=== PATIENT | female | born 1990 | race Caucasian/White ===

== ENCOUNTER 2023-10-22 20:08 | Outpatient (CLI) | payer SELFPAY ==
[2023-10-22] VITALS (16 sets, daily range): BP systolic 116–145; BP diastolic 62–83; PULSE 77–115; RESP 17; TEMP 36.1; BMI 33.7
[2023-10-22 20:41] LABS: Actim Prom Positive
[2023-10-22 20:57] LABS: Protein Urine Trace (Negative); Specific Gravity, Urine 1.015 (1.005-1.030); Urine Appearance SL Hazy (CLEAR); Urine Color Light yellow (Yellow); pH Urine 6 (5-7)
[2023-10-22 20:58] LABS: Bilirubin Urine Neg (Negative); Blood Urine 3+ (Negative); Glucose Urine UA Norm (Normal); Ketones Urine Negative (Negative); Leukocyte Esterase Urine Negative (Negative); Nitrate Urine Negative (Negative); Urobilinogen Urine Norm (Negative)
[2023-10-22 21:02] LABS: Bacteria Urine TRACE /hpf; RBC Urine 25-40 /hpf (0-2); Squamous Epithelial Cell Urine 0-4 /hpf (0-5); WBC Urine 0-4 /hpf (0-5)
[2023-10-22 21:03] LABS: Add Urine Culture? Yes
--- NOTE | 2023-10-22 22:46 | P.TNLD_ITS ---
OB L&D Triage Visit Information: Date of evaluation: 10/22/23 Reason for evaluation: other (Spontaneous rupture membranes at 33 weeks gestation (twins)) Evaluation: Baseline heart rate: 130 Variability: Moderate (11-25) monitor accelerations: Present 15x15 monitor decelerations: None Cervical dilation (cm): 1 Cervical effacement (%): 80 station: -2 Laboratory results: Laboratory Tests 10/22/23 10/22/23 20:32 20:35 Insulin-like GF I Positive Urine Color Light yellow Urine Appearance Sl hazy A Urine pH 6 Ur Specific Gravit y 1.015 Urine Protein Trace Urine Glucose (UA) Norm Urine Ketones Negative Urine Blood 3+ H Urine Nitrate Negative Urine Bilirubin Neg Urine Urobilinogen Norm Ur Leukocyte Ivette ase Negative Urine RBC 25-40 H Urine WBC 0-4 H Ur Squamous Epith Cells 0-4 H Amorphous Sediment Not Reportable Urine Bacteria Trace Vital signs: Vital Signs - 24 hr 10/22/23 20:13 10/22/23 20:14 10/22/23 20:20 Temperature 97.0 F L Pulse Rate 115 H Respiratory Rate 17 Blood Pressure 145/80 Oxygen Delivery Me thod 10/22/23 20:20 10/22/23 20:29 10/22/23 20:44 Temperature Pulse Rate 96 95 Respiratory Rate 17 Blood Pressure 131/83 121/72 Oxygen Delivery Me thod Room Air 10/22/23 20:59 10/22/23 21:14 10/22/23 21:29 Temperature Pulse Rate 87 88 106 H Respiratory Rate Blood Pressure 116/69 127/68 126/76 Oxygen Delivery Me thod 10/22/23 21:44 10/22/23 21:59 10/22/23 22:14 Temperature Pulse Rate 99 105 H 96 Respiratory Rate Blood Pressure 125/74 131/74 131/77 Oxygen Delivery Me thod 10/22/23 22:29 Temperature Pulse Rate 91 Respiratory Rate Blood Pressure 129/70 Oxygen Delivery Me thod Care Comments: See record Additional Care Information: 33-year-old G3, P1 Ab1 at 33.1 weeks gestation LMP 03/02/23, EDC 12/09/23 with diamniotic monochorionic twin gestation. Patient presented to labor and delivery with complaints of contractions onset 4 PM and gush of fluid at 7 PM. Patient admits to good movement. Patient has been seeing a CPM Lindsay Calderón this , and refused to be transferred to high risk care. records reviewed. Today after evaluation patient refuses antibiotics, magnesium sulfate, Procardia and IV fluid. She would only except IM betamethasone for lung maturation assistance. Prolonged and in depth counseling regarding twin gestation and delivery risk was done but patient declines. GBS cultures performed. Transfer to high risk facility has been advised, after patient questions name of accepting physician she accepts transfer. Bedside ultrasound?baby A vertex, baby B transverse. Final Diagnosis Final Diagnosis (1) Twin gestation in third trimester: Status: Acute Code(s): O30.003 - Twin , unspecified number of placenta and unspecified number of amniotic sacs, third trimester (2) Spontaneous rupture of membranes: Status: Acute (3) 33 weeks gestation of : Status: Acute Code(s): Z3A.33 - 33 weeks gestation of (4) premature rupture of membranes: Status: Acute Code(s): O42.919 - premature rupture of membranes, unspecified as to length of time between rupture and onset of labor, unspecified trimester (5) uterine contractions in third trimester, antepartum: Status: Acute Code(s): O47.03 - False labor before 37 completed weeks of gestation, third trimester Other Information/Follow up Transfer to high risk [facility] accepting physician Dr. Romeo. Coding Level of Care Code Acute Code for Chg Fwd Diagnoses Twin gestation in third trimester O30.003 Spontaneous rupture of membranes 33 weeks gestation of Z3A.33 premature rupture of membranes O42.919 uterine contractions in third trimester, antepartum O47.03
[2023-10-22] MEDS: betamethasone susp 6 mg/mL 1 mL (per mL) 12 MG IM (23:37)
[2023-10-23 00:14] VITALS: BP 122/74; PULSE 88; O2SAT 100
== END 2023-10-23 00:30 | disposition intermediate care facility (04) ==
LOC: OPOB 20:08 → OBGYN 20:08
PROVIDERS: Visit Provider Obstetrics & Gynecology
DX: O30.003 Twin pregnancy, unspecified number of placenta and unspecified number of amniotic sacs, third trimester (principal); Z3A.33 33 weeks gestation of pregnancy; O42.919 Preterm premature rupture of membranes, unspecified as to length of time between rupture and onset of labor, unspecified trimester; O47.03 False labor before 37 completed weeks of gestation, third trimester
CPT/HCPCS: 59025; 81001; 84112; 87081; 87086; 96372; 99211; J0702